=== PATIENT | female | born 1990 | race Caucasian/White ===

== ENCOUNTER 2018-04-15 06:08 | Outpatient (CLI) | payer MEDICAID ==
[2018-04-15 06:52] VITALS: BP 123/73
== END 2018-04-15 08:05 | disposition home or self-care (01) ==
LOC: WFO 06:08 → FBP 06:11 → WFO 08:05
PROVIDERS: ATTEND Obstetrics & Gynecology
DX: O99.89 Other specified diseases and conditions complicating pregnancy, childbirth and the puerperium (principal); R10.2 Pelvic and perineal pain
CPT/HCPCS: 81001; 87086; 99213